=== PATIENT | female | born 1945 | race Caucasian/White ===

== ENCOUNTER 2017-09-10 13:45 | Inpatient (IN) | payer MEDICARE ==
[~2017-09-10] VITALS: Ht 167.6 cm; Wt 75.7 kg
--- NOTE | 2017-09-10 13:50 | NUR ---
Pt placed in room 5a, pt ambulated (w/walker) out of room, pt placed back in room 5a. No sitter available, security called for 1:1 observation.
[2017-09-10] MEDS ORDERED: FLUT16SP NS (14:01)
[2017-09-10] MEDS ORDERED: IMIP25TA6 PO (14:01)
[2017-09-10] MEDS ORDERED: LISI10TA5 PO (14:01)
[2017-09-10] MEDS ORDERED: LEVO25TA9 PO (14:01)
[2017-09-10] MEDS ORDERED: ALBU8.5H8 IH (14:01)
[2017-09-10] MEDS ORDERED: AMLO5TAB2 PO (14:01)
[2017-09-10] MEDS ORDERED: GABA-534 PO (14:01)
[2017-09-10] MEDS ORDERED: CYCL5TAB PO (14:01)
[2017-09-10] MEDS ORDERED: SUMA100T16 PO (14:01)
[2017-09-10] MEDS ORDERED: MIRA25TA PO (14:01)
[2017-09-10] MEDS ORDERED: HYDR12.55 PO (14:01)
[2017-09-10] MEDS ORDERED: TRAM50TA2 PO (14:01)
[2017-09-10] MEDS ORDERED: DULO60CA45 PO (14:01)
[2017-09-10] MEDS ORDERED: GUAI-671 PO (14:01)
--- NOTE | 2017-09-10 14:03 | NUR ---
PER DR GARCIA PATIENT IS MEDICALLY CLEARED
--- NOTE | 2017-09-10 14:06 | NUR ---
Pt. admitted to [facility], under care of Dr. GERBER Belongs List completed.
[2017-09-10] MEDS ORDERED: ALBUTEROL SULFATE 8 GM HFA.AER.AD IH PRN (14:45)
[2017-09-10] MEDS ORDERED: Medication Not On Formulary EA (Cyclobenzaprine Hcl 5 MG) PO SCH (14:45)
[2017-09-10] MEDS ORDERED: TRAMADOL HCL 50 MG TABLET PO PRN (14:45)
[2017-09-10] MEDS ORDERED: MAG HYDROX/AL HYDROX/SIMETH 30 ML LIQUID UDC PO PRN (14:45)
[2017-09-10] MEDS ORDERED: MAGNESIUM HYDROXIDE 30 ML LIQUID UDC PO PRN (14:45)
--- NOTE | 2017-09-10 14:45 | NUR ---
Gps/Car Manager- Patient was admitted from ER via wheel chair, alert,oriented x3.Cooperative and pleasant, claimed has daughter in the [place] area. Patient admitted to had plan to go through traffic yesterday, and be run over by a bus . Patient denies any S.I at this time. Claimed she had issues yesterday r/t frustrations, angry that when she went to attend AA meeting the place was closed , and nobody told her. Ambulates around w/ FWW, gait slightlly unsteady , r/t to previous left hip surgery in . Tried to call her daughter Swetha, left message per Charge Nurse Goyo, routine admission care done
[2017-09-10] MEDS ORDERED: CYCLOBENZAPRINE HCL 10 MG TABLET PO PRN (15:00)
[2017-09-10] MEDS ORDERED: SUMATRIPTAN SUCCINATE 50 MG TABLET PO PRN (15:00)
[2017-09-10] MEDS ORDERED: ALBUTEROL SULFATE 2.5 MG/ 0.5 ML NEBU NEB PRN (15:00)
[2017-09-10 15:02] VITALS: BP 192/102
[2017-09-10 16:31] VITALS: BP 170/95
[2017-09-10] MEDS: NICOTINE 21 MG/24HR PATCH TD SCH (16:35)
[2017-09-10] MEDS: DULOXETINE 60 MG CAPSULE.DR PO SCH (16:37)
[2017-09-10] MEDS: FLUTICASONE PROP NASAL SPRAY 16 GM BOTTLE NS SCH (17:00)
--- NOTE | 2017-09-10 17:32 | NUR ---
Gps/Power Distributor- Patient did denies managing her anger, but noted patient this pm, patient has demanding behavior, kept asking for coffee(decaf.provided) was TV channel changed to [employer] even other staff are watching TV, irritability noted walked out of activity room, needed redirections , unit policy.
--- NOTE | 2017-09-10 18:04 | NUR ---
Gps/Binding Cutter Synthetic Cloth- Noted some irritability this pm when needs not met right away, noted pt. was curing , and she cant wait to get out of here, claimed she is aware she is o still on hold.
[2017-09-10] MEDS: ACETAMINOPHEN 325 MG TABLET PO PRN (19:56)
[2017-09-10] MEDS: MIRTAZAPINE 15 MG TABLET PO SCH (20:57)
[2017-09-10] MEDS: CLONAZEPAM 0.5 MG TABLET PO PRN (21:13)
[2017-09-10 21:15] VITALS: BP 172/93
[2017-09-10 22:00] VITALS: BP 182/87
[2017-09-10] MEDS: CLONIDINE HCL 0.1 MG TABLET PO PRN (22:02)
[2017-09-10 23:00] VITALS: BP 158/86
--- NOTE | 2017-09-10 23:30 | NUR ---
received to care, at start of shift, watching tv in activity room, initially verbally hostile and demanding, but became more pleasant and cooperative, after 1:1 interaction, and snack was provided. compliant with medications and staff direction. b/p initially was elevated, 172/93. no b/p meds were ordered for this evening. PRN klonopin was given at 2112, in attempt to reduce her anxiety. b/p was rechecked around 2199, and it was 182/87. Dr Estrada was paged. he ordered PRN catapres, which was given at 2201. as of 2299, her b/p was 158/86. as of 2329, she appears to be asleep. no distress noted. will continue to monitor closely. Addendum: 09/11/17 at 0027 by MARIAH BRAGG LVN denies SI, or desire to harm self.
[2017-09-11] MEDS: TEMAZEPAM 7.5 MG CAPSULE PO PRN (01:35)
--- NOTE | 2017-09-11 01:35 | NUR ---
PRN restoril, given, for insomnia.
--- NOTE | 2017-09-11 06:00 | NUR ---
slept 6.5 hours. is verbally hostile, and paranoid. states staff is trying to manipulate her. compliant with am synthroid.
[2017-09-11] MEDS: LEVOTHYROXINE SODIUM 25 MCG TABLET PO SCH (06:43)
[2017-09-11] MEDS ORDERED: GABAPENTIN 300 MG CAPSULE PO SCH (09:00)
[2017-09-11] MEDS ORDERED: Medication Not On Formulary EA (Hydrochlorothiazide 12.5 MG) PO SCH (09:00)
[2017-09-11 09:35] VITALS: BP 167/85
[2017-09-11] MEDS: DULOXETINE 60 MG CAPSULE.DR PO SCH ×2 (09:39→17:15)
[2017-09-11] MEDS: NICOTINE 21 MG/24HR PATCH TD SCH (09:39)
[2017-09-11] MEDS: HYDROCHLOROTHIAZIDE 12.5 MG CAPSULE PO SCH (09:39)
[2017-09-11] MEDS: LISINOPRIL 10 MG TABLET PO SCH (09:46)
[2017-09-11] MEDS: AMLODIPINE 5 MG TABLET PO SCH (09:47)
[2017-09-11] MEDS: FLUTICASONE PROP NASAL SPRAY 16 GM BOTTLE NS SCH ×2 (09:47→17:15)
[2017-09-11] MEDS: ACETAMINOPHEN 325 MG TABLET PO PRN ×2 (09:52→19:06)
[2017-09-11] MEDS: CLONIDINE HCL 0.1 MG TABLET PO PRN ×2 (09:52→17:28)
--- NOTE | 2017-09-11 11:33 | NUR ---
RECEIVED Pt IN BED SLEEPING, EASILY AROUSED, A/O X 2-3, Pt IS SLIGHTLY UNSURE OF WHAT DAY IT IS TODAY. Pt INITIALLY REFUSED CARE THIS MORNING, CARE STAFF WAS UNABLE TO RECORD VITAL SIGNS THIS MORNING. Pt WAS EASILY AGITATED AND CURSING AT STAFF THIS MORNING, STATED SHE JUST WANTS TO SLEEP. Pt WAS CALMLY APPROACHED BY NURSE AFTER A COUPLE OF HOURS SINCE REFUSAL, Pt WAS STILL SLIGHTLY AGITATED BUT NOTED TO BE CALMER AND APPROACHABLE. ASSESSED AND RECORDED VITAL SIGNS, BP OF 167/85, COMPLAINING OF HEADACHE AND ASKING FOR PAIN MEDS. Pt WAS COMPLIANT WITH MEDICATIONS THIS MORNING, GIVEN CATAPRES 0.1 MG PO PRN FOR SBP >160, GIVEN TYLENOL 650 MG PO PRN FOR PAIN/HEADACHE, Pt WENT BACK TO SLEEP AFTER MEDICATION ADMINISTRATION. EMPHASIZED SAFETY.
--- NOTE | 2017-09-11 14:30 | NUR ---
Pt ASKED TO SPEAK TO NURSE AROUND LUNCH TIME AND VOICED SEVERE DEPRESSION AND FEELING OVERWHELMED. Pt STATED, "I DO NOT APPRECIATE BEING DUMPED IN THIS HOSPITAL AND NOT BEING LISTENED TO BY ANYBODY. I FEEL EXTREMELY DISRESPECTED. IF THIS CONTINUES, I WILL KILL MYSELF. I DON'T CARE WHAT I HAVE TO DO BUT I WILL SERIOUSLY HARM MYSELF IF I CONTINUE BEING NEGLECTED AND DISRESPECTED." NURSE SPENT A CONSIDERABLE AMOUNT OF TIME SPEAKING WITH Pt AND ASSESSING HER NEEDS. Pt WAS CALMED USING VERBAL COMMUNICATION, REDIRECTED AND REORIENTED TO UNIT RULES. AFTER SPEAKING WITH NURSE, Pt HAS BEEN LESS ANXIOUS AND DEPRESSED, CALMER AND LESS HOSTILE. Pt STATED THAT SHE STILL FEELS SAD BUT WILL COMPLY WITH MEDS AND CARE STAFF. Pt AGREED TO TAKE A SHOWER. Pt REQUESTED FOR MEDS TO HELP WITH UPSET STOMACH, WAS GIVEN [place]LANTA PO PRN. INITIATED Q15 MINUTE HEAD CHECKS FOR SAFETY. WILL CLOSELY MONITOR Pt, WILL ENDORSE TO ALL CARE STAFF AND FLY RAISER LOCKSTITCH STAFF TO CLOSELY MONITOR Pt FOR SAFETY.
[2017-09-11] MEDS: GABAPENTIN 300 MG CAPSULE PO SCH (17:15)
[2017-09-11 17:27] VITALS: BP 165/91
--- NOTE | 2017-09-11 17:37 | NUR ---
VITAL SIGNS WERE ASSESSED AND RECORDED, BLOOD PRESSURE OF 165/91, NO DISTRESS NOTED, DENIES PAIN AT THIS TIME. GIVEN CATAPRES 0.1 MG PO PRN FOR SBP >160. WILL CONTINUE TO MONITOR Pt BLOOD PRESSURE.
[2017-09-11] MEDS: CLONAZEPAM 0.5 MG TABLET PO PRN (19:06)
--- NOTE | 2017-09-11 19:08 | NUR ---
Pt WAS NOTED AGITATED AND ANXIOUS AFTER HER COFFEE WAS THROWN AWAY WITH HER TRAY. Pt WAS GIVEN KLONOPIN 0.5 MG PO PRN FOR ANXIETY/AGITATION, GIVEN TYLENOL 650 MG PO PRN FOR GENERALIZED PAIN.
[2017-09-11 20:00] VITALS: BP 158/91
[2017-09-11] MEDS: MIRTAZAPINE 15 MG TABLET PO SCH (21:07)
--- NOTE | 2017-09-12 06:33 | NUR ---
Pt slept 8 hours. Came up to nurse's station last night to state she had wet her pants and bed and that "whether at the [facility] or at the hospital, this happens every night." Reminded pt she needs to use the bathroom before bed to avoid accidents, however pt is not motivated to go to the bathroom and chooses to wet herself. No episode of suicidal ideation. Pt did express anger over not seeing the doctor for more than 5 minutes yesterday. Compliant with medications. No aggressive behavior towards staff or others.
[2017-09-12] MEDS: LEVOTHYROXINE SODIUM 25 MCG TABLET PO SCH (06:46)
[2017-09-12 07:30] VITALS: BP 179/90
[2017-09-12] MEDS: NICOTINE 21 MG/24HR PATCH TD SCH (08:50)
[2017-09-12] MEDS: AMLODIPINE 5 MG TABLET PO SCH (08:55)
[2017-09-12] MEDS: DULOXETINE 60 MG CAPSULE.DR PO SCH ×2 (08:55→16:53)
[2017-09-12] MEDS: GABAPENTIN 300 MG CAPSULE PO SCH ×3 (08:55→16:54)
[2017-09-12] MEDS: LISINOPRIL 10 MG TABLET PO SCH (08:55)
[2017-09-12] MEDS: HYDROCHLOROTHIAZIDE 12.5 MG CAPSULE PO SCH (08:55)
[2017-09-12] MEDS: FLUTICASONE PROP NASAL SPRAY 16 GM BOTTLE NS SCH ×2 (08:56→16:55)
[2017-09-12] MEDS: ACETAMINOPHEN 325 MG TABLET PO PRN (08:56)
--- NOTE | 2017-09-12 11:30 | NUR ---
CALLED FOR CONSULT PER DR. GERBER REQUESTED
[2017-09-12 15:31] VITALS: BP 120/72
--- NOTE | 2017-09-12 19:30 | NUR ---
Received pt watching TV at the activity room. Socializing with other pts. No complaints of pain at this time. Will continue to monitor.
[2017-09-12 20:17] VITALS: BP 161/92
[2017-09-12] MEDS: MIRTAZAPINE 15 MG TABLET PO SCH (20:20)
[2017-09-13] MEDS: LEVOTHYROXINE SODIUM 25 MCG TABLET PO SCH (06:44)
--- NOTE | 2017-09-13 06:55 | NUR ---
Took AM meds and went right back to sleep. Denies pain or discomfort at this time. Frequent checks done to ensure safety.
[2017-09-13 07:30] VITALS: BP 185/96
[2017-09-13] MEDS: FLUTICASONE PROP NASAL SPRAY 16 GM BOTTLE NS SCH ×2 (08:14→16:08)
[2017-09-13] MEDS: NICOTINE 21 MG/24HR PATCH TD SCH (08:14)
[2017-09-13] MEDS: HYDROCHLOROTHIAZIDE 12.5 MG CAPSULE PO SCH (08:15)
[2017-09-13] MEDS: GABAPENTIN 300 MG CAPSULE PO SCH ×3 (08:15→16:07)
[2017-09-13] MEDS: DULOXETINE 60 MG CAPSULE.DR PO SCH ×2 (08:15→16:07)
[2017-09-13] MEDS: AMLODIPINE 5 MG TABLET PO SCH (08:15)
[2017-09-13] MEDS: LISINOPRIL 10 MG TABLET PO SCH (08:15)
--- NOTE | 2017-09-13 10:01 | NUR ---
Firearms Report: Lead Software Developer completed and submitted [employer] Firearms Report on 09/13/17.
--- NOTE | 2017-09-13 11:24 | NUR ---
Initial Discharge Instructions: Patient is currently homeless in the [facility]. Patient reported that she did not know what to do about her homelessness. SW explored options with the patient about B&Cs and patient stated that she would like to live in a B&C when discharged from the hospital. SW will speak with patient's dtr, Mary ([phone]). CHRISTIAN will continue to collaborate with pt, family, and MD regarding appropriate discharge plans for the patient. SW will form a safe and proper discharge plan.
[2017-09-13 15:35] VITALS: BP 187/94
[2017-09-13] MEDS: CLONIDINE HCL 0.1 MG TABLET PO PRN (16:08)
--- NOTE | 2017-09-13 19:20 | NUR ---
GPS: Received pt on bed.Pt shows no signs of distress .Safety and comfort provided.Will continue to monitor.
[2017-09-13] MEDS: MIRTAZAPINE 15 MG TABLET PO SCH (20:13)
[2017-09-13 20:17] VITALS: BP 121/86
[2017-09-14] MEDS: LEVOTHYROXINE SODIUM 25 MCG TABLET PO SCH (06:33)
--- NOTE | 2017-09-14 06:49 | NUR ---
GPS: PT SLEPT 8.30 HOURS. PT SHOWS NO SIGNS OF DISTRESS. PT CALM AT THIS TIME. TOOK HER MORNING MEDICATION. SAFETY AND COMFORT PROVIDED.
[2017-09-14 07:30] VITALS: BP 196/103
[2017-09-14] MEDS: HYDROCHLOROTHIAZIDE 12.5 MG CAPSULE PO SCH (08:14)
[2017-09-14] MEDS: DULOXETINE 60 MG CAPSULE.DR PO SCH ×2 (08:14→16:24)
[2017-09-14] MEDS: AMLODIPINE 5 MG TABLET PO SCH (08:14)
[2017-09-14] MEDS: FLUTICASONE PROP NASAL SPRAY 16 GM BOTTLE NS SCH ×2 (08:14→16:24)
[2017-09-14] MEDS: GABAPENTIN 300 MG CAPSULE PO SCH ×3 (08:14→16:24)
[2017-09-14] MEDS: NICOTINE 21 MG/24HR PATCH TD SCH (08:14)
[2017-09-14] MEDS: LISINOPRIL 10 MG TABLET PO SCH (08:15)
[2017-09-14 11:08] VITALS: BP 179/90
[2017-09-14] MEDS: CLONIDINE HCL 0.1 MG TABLET PO PRN (11:16)
--- NOTE | 2017-09-14 12:13 | NUR ---
Pt has refused her scheduled 1300HRS Gabapentin stating she doesn't take this medication. Explained risk and benefits and reminded her that she took this medication in the morning after explaining the medications she would be taking. Offered three times but pt stilled refused
[2017-09-14 15:16] VITALS: BP 114/82
[2017-09-14] MEDS: ACETAMINOPHEN 325 MG TABLET PO PRN (15:20)
[2017-09-14] MEDS: MIRTAZAPINE 15 MG TABLET PO SCH (20:07)
[2017-09-14 20:38] VITALS: BP_SYST 131; BP_SYST 136; BP_DIAS 80
[2017-09-15] MEDS: LEVOTHYROXINE SODIUM 25 MCG TABLET PO SCH (06:08)
[2017-09-15] MEDS: CLONAZEPAM 0.5 MG TABLET PO PRN (06:12)
--- NOTE | 2017-09-15 07:28 | NUR ---
pt received in her bed sleeping .v/s are stable.
[2017-09-15] MEDS: AMLODIPINE 5 MG TABLET PO SCH (08:08)
[2017-09-15] MEDS: DULOXETINE 60 MG CAPSULE.DR PO SCH ×2 (08:08→16:21)
[2017-09-15] MEDS: HYDROCHLOROTHIAZIDE 12.5 MG CAPSULE PO SCH (08:08)
[2017-09-15] MEDS: NICOTINE 21 MG/24HR PATCH TD SCH (08:08)
[2017-09-15] MEDS: GABAPENTIN 300 MG CAPSULE PO SCH ×3 (08:08→16:21)
[2017-09-15] MEDS: LISINOPRIL 10 MG TABLET PO SCH (08:08)
[2017-09-15 08:30] VITALS: BP 166/82
[2017-09-15] MEDS: FLUTICASONE PROP NASAL SPRAY 16 GM BOTTLE NS SCH ×2 (08:38→16:21)
[2017-09-15 09:36] LABS: BASOPHILS # (AUTO) 0.1 K/uL (0.0-8.0); BASOPHILS % (AUTO) 1.1 % (0.0-2.0); EOSINOPHILS # (AUTO) 0.4 K/uL (0.0-0.7); EOSINOPHILS % (AUTO) 7.1 % (0.0-7.0); HEMATOCRIT 35.3 % (31.2-41.9); HEMOGLOBIN 11.9 g/dL (10.9-14.3); LYMPHOCYTES # (AUTO) 1.9 K/uL (20.0-40.0); LYMPHOCYTES % (AUTO) 31.8 % (20.5-51.5); MEAN CORPUSCULAR HEMOGLOBIN 29.8 uug (24.7-32.8); MEAN CORPUSCULAR HGB CONC 34 g/dL (32.3-35.6); MEAN CORPUSCULAR VOLUME 88.2 fL (75.5-95.3); MONOCYTES # (AUTO) 0.6 K/uL (2.0-10.0); MONOCYTES % (AUTO) 9.8 % (0.0-11.0); NEUTROPHILS # (AUTO) 2.9 K/uL (1.8-8.9); NEUTROPHILS % (AUTO) 50.2 % (38.5-71.5); PLATELET COUNT (AUTO) 255 K/uL (179-408); RED BLOOD CELL COUNT(AUTO) 4.01 MIL/uL (3.63-4.92); WHITE BLOOD COUNT (AUTO) 5.9 K/uL (3.8-11.8)
[2017-09-15 09:57] LABS: THYROID STIMULATING HORMONE 0.897 mIU/mL (0.358-3.740)
[2017-09-15 10:19] LABS: BILIRUBIN,TOTAL 0.3 mg/dL (0.2-1.0); MAGNESIUM 1.7 mg/dL (1.8-2.4); PHOSPHOROUS 3.5 mg/dL (2.5-4.9); POTASSIUM 3.8 mmol/L (3.5-5.1); TOTAL PROTEIN, SERUM 6.3 g/dL (6.4-8.2)
[2017-09-15 16:31] VITALS: BP 136/86
[2017-09-15] MEDS: ATORVASTATIN 10 MG TABLET PO SCH (20:14)
[2017-09-15 20:40] VITALS: BP 134/91
[2017-09-15] MEDS ORDERED: MIRTAZAPINE 15 MG TABLET PO SCH (21:00)
[2017-09-16] MEDS: LEVOTHYROXINE SODIUM 25 MCG TABLET PO SCH (06:23)
--- NOTE | 2017-09-16 07:35 | NUR ---
Received pt watching TV at the activity room. Socializing with other pts. No complaints of pain at this time. Will continue to monitor.
[2017-09-16 08:00] VITALS: BP 159/81
[2017-09-16] MEDS: FLUTICASONE PROP NASAL SPRAY 16 GM BOTTLE NS SCH ×2 (08:13→16:02)
[2017-09-16] MEDS: AMLODIPINE 5 MG TABLET PO SCH (08:13)
[2017-09-16] MEDS: DULOXETINE 60 MG CAPSULE.DR PO SCH ×2 (08:13→16:02)
[2017-09-16] MEDS: HYDROCHLOROTHIAZIDE 12.5 MG CAPSULE PO SCH (08:13)
[2017-09-16] MEDS: NICOTINE 21 MG/24HR PATCH TD SCH (08:13)
[2017-09-16] MEDS: LISINOPRIL 10 MG TABLET PO SCH (08:13)
[2017-09-16] MEDS: GABAPENTIN 300 MG CAPSULE PO SCH ×3 (08:14→16:02)
--- NOTE | 2017-09-16 14:45 | NUR ---
Dr. Granados with pt for psychotherapy consult.
--- NOTE | 2017-09-16 15:34 | NUR ---
Discharge Planning Note: SW met with pt to discuss discharge planning at bedside. Per pt, she is agreeable to being discharged to a B&C in the [place]. Pt spoke wit immunology specialist, Nathalie ([phone]) who informed pt she can be placed at a B&C in [place], [place]. SW will follow-up to ensure safe and proper discharge.
[2017-09-16 16:00] VITALS: BP 142/73
[2017-09-16] MEDS ORDERED: MAGNESIUM OXIDE 400 MG TABLET PO ONE (20:00)
[2017-09-16] MEDS: ATORVASTATIN 10 MG TABLET PO SCH (20:17)
[2017-09-16 21:00] VITALS: BP 146/63
[2017-09-16] MEDS ORDERED: MIRTAZAPINE 15 MG TABLET PO SCH (21:00)
[2017-09-16] MEDS: TEMAZEPAM 7.5 MG CAPSULE PO PRN (21:43)
--- NOTE | 2017-09-16 22:00 | NUR ---
received to care, lying bed, pleasant upon approach. compliant with medications and staff direction. PRN restoril was given at 2142, for insomnia. as of 2199, she remains awake. no distress noted. will continue to monitor closely.
--- NOTE | 2017-09-16 22:30 | NUR ---
appears to be asleep. no distress noted.
[2017-09-17] MEDS: ACETAMINOPHEN 325 MG TABLET PO PRN (02:18)
--- NOTE | 2017-09-17 06:00 | NUR ---
slept 5.5 hours, total.
[2017-09-17] MEDS: LEVOTHYROXINE SODIUM 25 MCG TABLET PO SCH (06:45)
[2017-09-17 07:30] VITALS: BP 169/91
[2017-09-17] MEDS: HYDROCHLOROTHIAZIDE 12.5 MG CAPSULE PO SCH (08:27)
[2017-09-17] MEDS: LISINOPRIL 10 MG TABLET PO SCH (08:27)
[2017-09-17] MEDS: AMLODIPINE 5 MG TABLET PO SCH (08:27)
[2017-09-17] MEDS: NICOTINE 21 MG/24HR PATCH TD SCH (08:28)
[2017-09-17] MEDS: DULOXETINE 60 MG CAPSULE.DR PO SCH (08:28)
[2017-09-17] MEDS: GABAPENTIN 300 MG CAPSULE PO SCH ×2 (08:28→13:32)
[2017-09-17 09:30] VITALS: BP 141/66
[2017-09-17] MEDS: FLUTICASONE PROP NASAL SPRAY 16 GM BOTTLE NS SCH (09:57)
--- NOTE | 2017-09-17 11:26 | NUR ---
Discharge Note: Patient will be discharged to [facility] [[address], [place] [address]; [phone]] via private transportation at 3pm. Spoke with Nathalie at the facility who states they are ready to accept the patient today. Left message for patients daughterMary ([phone]) to alert about patients discharge. Patient is aware and agreeable with discharge plans. Patient was referred to [facility] [phone] for Consulting Manager referrals. Patient was also provided with list for outpatient Psychiatrist referrals. Patient was provided with a brief substance abuse intervention and referred to [facility] , [facility] , and [facility] . Patient was also given list of local Alcoholics Anonymous Meetings for her to attend at her request. For smoking cessation, patient was referred to [employer] 147-LUNGUSA and [employer] [phone]. Per pt request, she was provided with information for the [employer] Sequestration Plant Operator office locations, and benefits for which she can apply. Patient was provided with outpatient mental health resources to [facility] , Sherice Bates , and the National Suicide Prevention Lifeline as well.
[2017-09-17 14:49] VITALS: BP 170/90
[2017-09-17] MEDS: CLONIDINE HCL 0.1 MG TABLET PO PRN (14:49)
--- NOTE | 2017-09-17 15:00 | NUR ---
PRESCRIPTION MEDICATIONS FROM MEDICAL SIDE WERE CALLED IN TO [facility] [phone]
--- NOTE | 2017-09-17 15:30 | NUR ---
Pt left facility assisted by social services director for [facility]. Pt left in fair condition. A&O x4. Ambulatory and denies pain. Left with discharge summary and instructions. Left with all her valuables and belongings. ID band removed. No s/s of acute distress noted. Endorsed to social services director.
== END 2017-09-17 16:00 | DRG 885 ==
LOC: ER 13:45 → GPS 14:10
PROVIDERS: ADMIT Psychiatry & Neurology Psychiatry; ATTEND Internal Medicine
DX: F33.2 Major depressive disorder, recurrent severe without psychotic features (principal); B35.1 Tinea unguium; E03.9 Hypothyroidism, unspecified; F10.20 Alcohol dependence, uncomplicated; F41.9 Anxiety disorder, unspecified; I25.10 Atherosclerotic heart disease of native coronary artery without angina pectoris; Z95.1 Presence of aortocoronary bypass graft; Z88.0 Allergy status to penicillin; Z79.899 Other long term (current) drug therapy; Y90.9 Presence of alcohol in blood, level not specified; Z59.0 Homelessness; I10 Essential (primary) hypertension; M21.612 Bunion of left foot; M21.611 Bunion of right foot; M21.372 Foot drop, left foot; L84 Corns and callosities; I73.9 Peripheral vascular disease, unspecified
CPT/HCPCS: 36415; 83735; 84100; 84443; 85025; A4663; J3535